=== PATIENT | female | born 1970 | race Caucasian/White ===

== ENCOUNTER 2021-04-02 09:22 | Day surgery (SDC) | payer OTHER ==
[~2021-04-02] VITALS: Ht 165.1 cm; Wt 82.6 kg
[2021-04-02] MEDS ORDERED: fentaNYL citrate 0.05 MG/ML VIAL ONE (09:57)
[2021-04-02] MEDS ORDERED: diphenhydrAMINE 50 MG/ML VIAL ONE (09:57)
[2021-04-02] MEDS ORDERED: MIDAZOLAM 5 MG/5 ML VIAL ONE (09:57)
[2021-04-02] MEDS: MIDAZOLAM 2 MG/2 ML VIAL IVP ONE (10:18)
[2021-04-02] MEDS: fentaNYL citrate 0.05 MG/ML VIAL IVP ONE (10:19)
[2021-04-02] MEDS: LIDOCAINE 2% 100 MG/5 ML UJET TP ONE (10:19)
== END 2021-04-02 11:15 | disposition home or self-care (01) ==
LOC: MMU 09:22 → MDS 09:22
PROVIDERS: ATTEND Internal Medicine Gastroenterology
DX: Z12.11 Encounter for screening for malignant neoplasm of colon (principal); E11.9 Type 2 diabetes mellitus without complications; F41.9 Anxiety disorder, unspecified; E03.9 Hypothyroidism, unspecified; Z88.0 Allergy status to penicillin; Z79.84 Long term (current) use of oral hypoglycemic drugs; Z79.899 Other long term (current) drug therapy
CPT/HCPCS: 45378; J2250; J3010; J1200